=== PATIENT | male | born 1980 | race Hispanic/Latino ===

== ENCOUNTER 2017-06-20 14:11 | Emergency (ER) | payer SELFPAY | END 2017-06-20 17:07 | disposition home or self-care (01) | LOC: EDH 14:11 | DX: M79.652 Pain in left thigh (principal); Z72.0 Tobacco use | CPT/HCPCS: 93971 ==

== ENCOUNTER 2017-07-01 15:17 | Emergency (ER) | payer SELFPAY ==
[2017-07-01] MEDS ORDERED: IBUPROFEN 600 MG TABLET ONE (15:31)
== END 2017-07-01 15:36 | disposition home or self-care (01) ==
LOC: EDH 15:17
DX: G89.29 Other chronic pain (principal); M79.662 Pain in left lower leg; Z72.0 Tobacco use